=== PATIENT | male | born 1980 | race African-American/Black ===

== ENCOUNTER 2019-11-25 02:18 | Emergency (ER) | payer OTHER ==
[~2019-11-25] VITALS: Ht 185.4 cm; Wt 68.0 kg
[2019-11-25 05:45] VITALS: BP 124/81
== END 2019-11-25 05:45 | disposition home or self-care (01) ==
LOC: ER 02:18
DX: F10.121 Alcohol abuse with intoxication delirium (principal); F17.210 Nicotine dependence, cigarettes, uncomplicated; Y90.9 Presence of alcohol in blood, level not specified